=== PATIENT | female | born 1985 | race Caucasian/White ===

== ENCOUNTER 2021-07-16 18:09 | Emergency (ER) | payer OTHER ==
[~2021-07-16 18:09] MED LIST: HABITROL 21 MG P1 EA TD; LASIX20 MG PO; LEVOFLOXACIN750 MG PO; LIORESAL TAB 1010 MG PO; NEURONTIN 100100 MG PO; REQUIP2 MG PO; TRAZODONE HCL100 MG PO; XARELTO15 MG PO; ZANTAC150 MG PO
[2021-07-16 19:19] LABS: BORDETELLA PARAPERTUSSIS Not Detected (Not Detectd); BORDETELLA PERTUSSIS Not Detected (Not Detectd); CHLAMYDIA PNEUMONIAE Not Detected (Not Detectd); CORONAVIRUS HKU1 Not Detected (Not Detectd); CORONAVIRUS NL63 Not Detected (Not Detectd); CORONAVIRUS OC43 Not Detected (Not Detectd); CORONOAVIRUS 229E Not Detected (Not Detectd); HUMAN METAPNEUMOVIRUS Not Detected (Not Detectd); HUMAN RHINOVIRUS/ENTEROVIRUS Not Detected (Not Detectd); INFLUENZA A Not Detected (Not Detectd); INFLUENZA B Not Detected (Not Detectd); MYCOPLASMA PNEUMONIAE Not Detected (Not Detectd); PARAINFLUENZA VIRUS 1 Not Detected (Not Detectd); PARAINFLUENZA VIRUS 2 Not Detected (Not Detectd); PARAINFLUENZA VIRUS 3 Not Detected (Not Detectd); PARAINFLUENZA VIRUS 4 Not Detected (Not Detectd); RESPIRATORY SYNCYTIAL VIRUS Not Detected (Not Detectd)
[2021-07-16 19:44] LABS: HEMOGLOBIN 11.4 gm/dl (12.3-15.3); RED BLOOD COUNT 3.43 M/UL (4.00-5.10); WHITE BLOOD COUNT 8.8 K/UL (4.5-11.0)
[2021-07-16 20:19] LABS: SARS-CoV-2 NOT DETECTED (Not Detectd)
[2021-07-16] MEDS ORDERED: IBUPROFEN800 MG PO (21:12)
[2021-07-16] MEDS ORDERED: BENZONATATE200 MG PO (21:12)
[2021-07-16] MEDS ORDERED: ZITHROMAX250 MG PO (21:12)
== END 2021-07-16 21:30 | disposition home or self-care (01) ==
LOC: ER1 18:09
PROVIDERS: Physician Assistant Medical
DX: R09.1 Pleurisy (principal); Z20.822 Contact with and (suspected) exposure to COVID-19; Z88.1 Allergy status to other antibiotic agents; Z88.2 Allergy status to sulfonamides
CPT/HCPCS: 71045; 80053; 82550; 82553; 84484; 85025; 85379; 87633; 93005; 94664; 99285